=== PATIENT | female | born 1975 | race Caucasian/White ===

== ENCOUNTER → 2023-12-31 17:13 | Outpatient (REF) | payer OTHER, SELFPAY | LOC: RAD 17:13 | PROVIDERS: ATTENDING PHYSICIAN Family Medicine; PRIMARYCARE PHYSICIAN Family Medicine | DX: R06.02 Shortness of breath (principal); R07.89 Other chest pain; R05.1 Acute cough | CPT/HCPCS: 71046 ==

== ENCOUNTER → 2024-05-19 15:34 | Outpatient (REF) | payer OTHER, SELFPAY | LOC: RAD 15:34 | PROVIDERS: ATTENDING PHYSICIAN Physician Assistant Medical | DX: M25.512 Pain in left shoulder (principal); M54.2 Cervicalgia | CPT/HCPCS: 72052; 73030 ==